=== PATIENT | female | born 1935 | race Two or more races ===

== ENCOUNTER 2018-09-12 06:52 | Inpatient (IN) | payer OTHER ==
[2018-09-12] VITALS (24 sets, daily range): BP systolic 97–143; BP diastolic 41–68
[~2018-09-12] VITALS: Ht 162.6 cm; Wt 75.4 kg
[~2018-09-12 06:52] MED LIST: ALPR0.25 PO; ALPR0.5T PO; AMLO2.5T45 PO; ASPI-1159 PO; ATOR-2 PO; CLOP75TA33 PO; DEXL60CA3 PO; FERR-63 PO; GABA-529 PO; POTA10CA42 PO; TRAM50TA3 PO
[2018-09-12] MEDS ORDERED: LIDOCAINE HCL 1% 20ML VIAL (Pyxis) INJ ONE (08:29)
[2018-09-12] MEDS ORDERED: IODIXANOL 320MG/ML 100 ML BOTTLE IV ONE (08:29)
[2018-09-12] MEDS ORDERED: IOHEXOL-300 100 ML BOTTLE ONE (08:31)
[2018-09-12] MEDS ORDERED: ACET-2708 PO (08:46)
[2018-09-12] MEDS ORDERED: FAMO-135 PO (08:46)
[2018-09-12] MEDS ORDERED: CHOL500063 PO (08:46)
[2018-09-12] MEDS ORDERED: METF-414 PO (08:46)
[2018-09-12] MEDS ORDERED: VITA1CAP PO (08:46)
[2018-09-12] MEDS ORDERED: MICAR8 PO (08:46)
[2018-09-12] MEDS ORDERED: ATROPINE SULFATE 0.1MG/ML 10ML DISP.SYRIN ONE (08:47)
[2018-09-12] MEDS ORDERED: MIDAZOLAM HCL 2 MG/2 ML VIAL ONE (08:47)
[2018-09-12] MEDS ORDERED: FENTANYL CITRATE/PF 50MCG/ML 2ML VIAL ONE (08:47)
[2018-09-12] MEDS ORDERED: HYDRALAZINE 20MG/ML VIAL ONE (09:02)
[2018-09-12] MEDS ORDERED: ASPIRIN 325MG TABLET ONE (10:02)
[2018-09-12] MEDS ORDERED: CLOPIDOGREL 75MG TABLET ONE (10:03)
[2018-09-12] MEDS ORDERED: ATROPINE SULFATE 1MG/10ML SYR IV PRN (10:15)
[2018-09-12] MEDS ORDERED: ONDANSETRON HCL 4MG/2ML INJ IV PRN (10:15)
[2018-09-12] MEDS ORDERED: ASPIRIN 325MG TABLET PO SCH (11:45)
[2018-09-12] MEDS ORDERED: SIMV40TA5 MT (12:02)
[2018-09-12] MEDS: ACETAMINOPHEN 325MG TABLET PO PRN ×2 (12:12→21:13)
[2018-09-12] MEDS ORDERED: HEPARIN SODIUM 1,000 UNIT/1ML VIAL IV ONE (13:27)
[2018-09-12] MEDS: SIMETHICONE 80MG TABLET CHEW PO PRN ×2 (13:38→21:13)
[2018-09-12] MEDS ORDERED: ALPRAZOLAM 0.25 MG TABLET PO PRN (15:30)
[2018-09-12] MEDS ORDERED: FAMOTIDINE 20MG TABLET PO SCH (21:00)
[2018-09-13] VITALS (7 sets, daily range): BP systolic 104–150; BP diastolic 48–102
[2018-09-13] MEDS ORDERED: CLOPIDOGREL 75MG TABLET PO SCH (09:00)
[2018-09-13] MEDS ORDERED: ASPIRIN 325MG TABLET PO SCH (09:00)
[2018-09-13 10:36] LABS: BASOPHILS % 0.4 % (0.0-2.0); EOSINOPHILS % 1.9 % (0.0-5.0); HEMATOCRIT. 34.2 % (36.0-48.0); HEMOGLOBIN. 11.2 g/dL (12.0-16.0); LYMPHOCYTES % 20.1 % (20.0-50.0); MEAN CORPUSCULAR HEMOGLOBIN 29.8 pg (28.0-32.0); MEAN PLATELET VOLUME 9.1 fl (7.4-10.4); MONOCYTES % 8.1 % (2.0-8.0); NEUTROPHILS % 69.5 % (40.0-76.0); PLATELET 198 x1000/uL (130-400); RED BLOOD CELL COUNT 3.76 mill/uL (4.2-5.4); RED CELL DISTRIBUTION WIDTH 13.5 % (11.6-14.6)
[2018-09-13 10:51] LABS: CHLORIDE 109 mEq/L (98-107)
[2018-09-13] MEDS ORDERED: ASPI-1158 PO (10:54)
[2018-09-13] MEDS ORDERED: POTASSIUM CHLORIDE 20MEQ TABLET SR PO NR (11:00)
== END 2018-09-13 12:11 | disposition home health service (06) | DRG 36 ==
LOC: CCL 06:52 → 3WST 11:29 → UNDODISIN 15:26
PROVIDERS: ADMIT Specialist; ATTEND Specialist
PROC: B3131ZZ Fluoroscopy of Right Common Carotid Artery using Low Osmolar Contrast (ICD-10-PCS; principal; 2018-09-12)
PROC: 037K3DZ Dilation of Right Internal Carotid Artery with Intraluminal Device, Percutaneous Approach (ICD-10-PCS; 2018-09-12)
DX: I65.21 Occlusion and stenosis of right carotid artery (principal); E11.9 Type 2 diabetes mellitus without complications; E78.5 Hyperlipidemia, unspecified; I11.9 Hypertensive heart disease without heart failure; I25.10 Atherosclerotic heart disease of native coronary artery without angina pectoris; I35.9 Nonrheumatic aortic valve disorder, unspecified; Z95.2 Presence of prosthetic heart valve; Z95.5 Presence of coronary angioplasty implant and graft
CPT/HCPCS: 36222; 36415; 37215; 80048; 82962; 85347; 93005; C1725; C1760; C1769; C1876; C1884; C1887; C1893; C1894; J0360; J0461; J1644; J2250; J3010; J3490; Q9967